=== PATIENT | male | born 1965 | race Caucasian/White ===

== ENCOUNTER 2018-03-09 14:44 | Inpatient (IN) | payer OTHER ==
[~2018-03-09] VITALS: Ht 182.9 cm; Wt 100.6 kg
[~2018-03-09 14:44] MED LIST: LOSA50TA72 PO
[2018-03-09] MEDS ORDERED: GEMF600T91 (14:49)
[2018-03-09] MEDS ORDERED: NS(*) 0.9% 1000 ML BAG 1,000 ML IV ONE ×2 (15:20→17:50)
[2018-03-09] MEDS ORDERED: ONDANSETRON 4 MG/2 ML VIAL IVP ONE (15:20)
[2018-03-09] MEDS ORDERED: DICYCLOMINE HCL 10 MG CAP PO ONE (15:20)
[2018-03-09] MEDS ORDERED: IOPAMIDOL 76% 100 ML INFUS BTL 100 ML ONE (15:29)
--- NOTE | 2018-03-09 15:34 | ER Report ---
History and Physical Time Seen By MD: 15:00 Hx. of Stated Complaint: PT REPORTS VOMITING, DIARRHEA AND ABD PAIN ON AND OFF SINCE MONDAY HPI/ROS CHIEF COMPLAINT: diarrhea/vomiting/abdominal pain HISTORY OF PRESENT ILLNESS: Pt here for evaluation of n/v and diarrhea. Pt symptoms Monday. Monday ate at [employer] and started with diarrhea soon after. PT thought he had food poisioning. On Monday started with vomiting with the diarrhea. thought it was getting better until today when symptoms restarted. Pt has diffuse abdominal cramping. no traveling out side the country. no recent abx. no fevers or chills. tired zantac and immodium without relief. no sick contacts. PT did state that he stepped on a jeffery nail 10 days ago thru his shoe. The foot is better per pt but he needs a tetnus shot. REVIEW OF SYSTEMS: Constitutional: No fever, no chills. Eyes: No discharge. ENT: No sore throat. Cardiovascular: No chest pain, no palpitations. Respiratory: No cough, no shortness of breath. Gastrointestinal: + abdominal pain, + vomiting, + diarrhea Genitourinary: No hematuria. Musculoskeletal: No back pain. Skin: No rashes. Neurological: No headache. Allergies: Coded Allergies: No Known Drug Allergies (Unverified , 03/09/18) Home Meds Reported Medications Gemfibrozil (GEMFIBROZIL) 600 Mg Tablet, BID 03/09/18 Losartan Potassium (LOSARTAN POTASSIUM) 50 Mg Tablet, 50 MG PO QDAY 12/25/16 Past Medical/Surgical History Pmhx: htn, hyperlipid Pshx: hernia repair a child Hx Smoking: No (chews) Hx Substance Use Disorder: No Hx Alcohol Use: Yes Constitutional Vital Sign - Last 24 Hours 03/09/18 03/09/18 03/09/18 03/09/18 14:45 14:50 15:31 16:06 Temp 97.8 Pulse 68 68 Resp 18 B/P (MAP) 142/98 142/98 (113) 132/93 (106) Pulse Ox 96 90 O2 Delivery Room Air 03/09/18 16:21 Pulse 70 Pulse Ox 92 Intake and Output 03/09/18 03/09/18 03/10/18 15:00 23:00 07:00 Intake Total 1000 ml Balance 1000 ml Physical Exam General Appearance: The patient is alert, has no immediate need for airway protection and no signs of toxicity. Eyes: Pupils equal and round no pallor or injection, EOMI ENT: no pharyngeal erythema or exudates, Mucous membranes are moist, Respiratory: There are no retractions, lungs are clear to auscultation. Cardiovascular: Regular rate and rhythm. pulses are equal and symmetrical Gastrointestinal: Abdomen is soft with diffuse tenderness, no masses, bowel sounds decreased no guarding, no rigidity or rebound Neurological: Cranial nerves II-XII grossly intact, no sensory or motor loss Skin: Warm and dry, no rashes. Musculoskeletal: Neck is supple non tender, no vertebral tenderness Extremities are nontender, nonswollen and have full range of motion. DIFFERENTIAL DIAGNOSIS: After history and physical exam differential diagnosis was considered for colitis, diverticulitis, infectious diarrhea, psbo, dehydation, electrolyte abnl Medical Decision Making Data Points Result Diagram: 03/09/18 1604 03/09/18 1604 Laboratory Hematology Test 03/09/18 16:04 Red Blood Count 5.38 M/uL (4.00-5.60) Mean Corpuscular Volume 85.7 fL (80.0-96.0) Mean Corpuscular Hemoglobin 31.2 pg (26.0-33.0) Mean Corpuscular Hemoglobin Concent 36.4 g/dL (32.0-36.0) Red Cell Distribution Width 13.5 % (11.5-14.5) Mean Platelet Volume 8.6 fL (7.2-11.1) Neutrophils (%) (Auto) 78.3 % (39.4-72.5) Lymphocytes (%) (Auto) 13.1 % (17.6-49.6) Monocytes (%) (Auto) 4.9 % (4.1-12.4) Eosinophils (%) (Auto) 3.4 % (0.4-6.7) Basophils (%) (Auto) 0.3 % (0.3-1.4) Nucleated RBC Relative Count (auto) 0.1 /100WBC Neutrophils # (Auto) 8.3 K/uL (2.0-7.4) Lymphocytes # (Auto) 1.4 K/uL (1.3-3.6) Monocytes # (Auto) 0.5 K/uL (0.3-1.0) Eosinophils # (Auto) 0.4 K/uL (0.0-0.5) Basophils # (Auto) 0.0 K/uL (0.0-0.1) Nucleated RBC Absolute Count (auto) 0.01 K/uL Peripheral Blood Smear Yes Y/N Sodium Level 144 mmol/L (137-145) Potassium Level 3.0 mmol/L (3.5-5.0) Chloride Level 105 mmol/L (98-107) Carbon Dioxide Level 22 mmol/L (22-30) Blood Urea Nitrogen 19 mg/dl (9-21) Creatinine 1.10 mg/dl (0.66-1.25) Glomerular Filtration Rate Calc > 60.0 Random Glucose 124 mg/dl (75-110) Calcium Level 9.1 mg/dl (8.4-10.2) Magnesium Level 1.9 mg/dl (1.7-2.2) Total Bilirubin 1.0 mg/dl (0.2-1.3) Aspartate Amino Transf (AST/SGOT) 36 U/L (0-35) Alanine Aminotransferase (ALT/SGPT) 54 U/L (0-56) Alkaline Phosphatase 54 U/L (0-126) Total Protein 7.0 g/dl (6.3-8.2) Albumin 4.2 g/dl (3.5-5.0) Lipase 4635 U/L (23-300) Chemistry Test 03/09/18 16:04 White Blood Count 10.5 k/uL (4.5-11.0) Red Blood Count 5.38 M/uL (4.00-5.60) Hemoglobin 16.8 g/dL (14.0-18.0) Hematocrit 46.1 % (42.0-52.0) Mean Corpuscular Volume 85.7 fL (80.0-96.0) Mean Corpuscular Hemoglobin 31.2 pg (26.0-33.0) Mean Corpuscular Hemoglobin Concent 36.4 g/dL (32.0-36.0) Red Cell Distribution Width 13.5 % (11.5-14.5) Platelet Count 237 K/uL (150-450) Mean Platelet Volume 8.6 fL (7.2-11.1) Neutrophils (%) (Auto) 78.3 % (39.4-72.5) Lymphocytes (%) (Auto) 13.1 % (17.6-49.6) Monocytes (%) (Auto) 4.9 % (4.1-12.4) Eosinophils (%) (Auto) 3.4 % (0.4-6.7) Basophils (%) (Auto) 0.3 % (0.3-1.4) Nucleated RBC Relative Count (auto) 0.1 /100WBC Neutrophils # (Auto) 8.3 K/uL (2.0-7.4) Lymphocytes # (Auto) 1.4 K/uL (1.3-3.6) Monocytes # (Auto) 0.5 K/uL (0.3-1.0) Eosinophils # (Auto) 0.4 K/uL (0.0-0.5) Basophils # (Auto) 0.0 K/uL (0.0-0.1) Nucleated RBC Absolute Count (auto) 0.01 K/uL Peripheral Blood Smear Yes Y/N Glomerular Filtration Rate Calc > 60.0 Calcium Level 9.1 mg/dl (8.4-10.2) Magnesium Level 1.9 mg/dl (1.7-2.2) Total Bilirubin 1.0 mg/dl (0.2-1.3) Aspartate Amino Transf (AST/SGOT) 36 U/L (0-35) Alanine Aminotransferase (ALT/SGPT) 54 U/L (0-56) Alkaline Phosphatase 54 U/L (0-126) Total Protein 7.0 g/dl (6.3-8.2) Albumin 4.2 g/dl (3.5-5.0) Lipase 4635 U/L (23-300) EKG/Imaging Imaging diverticulosis, very small amount free fluid ED Course/Re-evaluation Clinical Indication for ER IV: Hydration, IV Access ED Course Will check labs and give fluids 03/09/2018 5:53:21 pm Pts potassium is low and being replaced. Pts CT is stable. Labs show pancreatitis. Will speak with Hospitalist, Dr. Traylor. 03/09/2018 5:58:[address] Traylor to admit. Decision to Disposition Date: Mar 09, 2018 Decision to Disposition Time: 17:58 Depart Departure Latest Vital Signs Vital Signs Date Time Temp Pulse Resp B/P (MAP) Pulse Ox O2 Delivery O2 Flow Rate FiO2 03/09/18 16:21 70 92 03/09/18 15:31 132/93 (106) 03/09/18 14:45 97.8 18 Room Air Impression: Primary Impression: Gastroenteritis Additional Impressions: Hypokalemia Pancreatitis, acute Condition: Improved Disposition: Admitted from ER Problem Qualifiers Additional Impressions: Pancreatitis, acute Pancreatitis type: unspecified pancreatitis type Acute pancreatitis complication: unspecified Qualified Codes: K85.90 - Acute pancreatitis without necrosis or infection, unspecified CAITLYN PUCKETT DO Mar 09, 2018 15:34
[2018-03-09 16:14] LABS: PLATELET COUNT, AUTOMATED 237 K/uL (150-450)
[2018-03-09] MEDS: KCL (*) 20 MEQ/100 ML PREMIX 100 ML IV SCH ×2 (17:06→18:59)
--- NOTE | 2018-03-09 17:15 | RADIOLOGY IMAGING REPORT ---
FACILITY: [facility] - [place] PATIENT NAME: New Simpson : 1965 MR: [id number] V: [id number] EXAM DATE: ORDERING PHYSICIAN: CAITLYN PUCKETT TECHNOLOGIST: Location: [facility] Patient: New Simpson : 1965 Visit/Account:[id number] Date of Sevice: 03/09/2018 CT abdomen and pelvis with IV contrast Indication: Abdominal pain and diarrhea. Comparison: None available. . Technique: Axial CT images were obtained through the abdomen and pelvis during injection of nonioni c iodinated intravenous contrast. Reformatted coronal and sagittal images were also obtained. One of the following dose optimization techniques was utilized in the performance of this exam: Autom ated exposure control; adjustment of the mA and/or kV according to the patient's size; or use of an i terative reconstruction technique. Specific details can be referenced in the facility's radiology C T exam operational policy. Contrast: 75 ml of Isovue-370 IV contrast. Findings: Lower lung berry: There are some mild bibasilar atelectasis. The anterior left lower lobe does show a 4 mm nodule. As this is less than 6 mm, no further dictation. Lung bases otherwise clear. Liver: Liver does appear to be mildly diffusely dense. The inferior right lobe liver does show a lesi on which may represent a area of focal fat or fatty sparing, as vessels appear to run normally throug h this area.. Biliary: Gallbladder appears unremarkable as well as the intra and extra hepatic biliary system. Pancreas: Normal appearance. Spleen: Normal appearance. Adrenal glands: Unremarkable. Kidneys / retroperitoneum: No evidence of nephrolithiasis or hydronephrosis. No focal abnormality. Bowel / peritoneum / mesenteries: The descending and sigmoid colon do show couple diverticula without pericolonic inflammation. The colon shows no other focal abnormality. The appendix is normal. Small bowel shows no focal normality or obstruction. The stomach is unremarkable. No free air, fluid collections or areas of inflammation. Very small amount of free fluid seen in the pelvis. There is a small supraumbilical ventral hernia containing fat. Small left renal hernia presen t containing fat. Lymph node assessment: No pathologic adenopathy identified. Pelvic structures: Appear unremarkable. Vessels: No significant atherosclerotic calcifications seen throughout a nonaneurysmal abdominal aort a and branches. Musculoskeletal / Body wall: No acute or aggressive osseous abnormality. Bone island in the left femo ral neck. IMPRESSION: 1. No acute intra-abdominal abnormality 2. Diverticulosis without radiographic indication of diverticulitis. 3. Very small amount of free fluid in pelvis, nonspecific. 4. Other chronic nonemergent findings as above. Report Dictated By: Donovan Ta at 03/09/2018 5:02 PM Report E-Signed By: Donovan Ta at 03/09/2018 5:11 PM [id number]
[2018-03-09] MEDS ORDERED: DIPHTH/TETANUS/ACEL. PERTUSSIS IM ONLY ONE (17:35)
[2018-03-09 19:53] VITALS: BP 148/93
[2018-03-09] MEDS ORDERED: NS(*) 0.9% 250 ML BAG 250 ML ONE (20:13)
[2018-03-09] MEDS ORDERED: NS(*) 0.9% 1000 ML BAG 1,000 ML IV PRN (20:19)
[2018-03-09] MEDS ORDERED: PROMETHAZINE 25 MG/ML 1 ML AMP IVP PRN (20:20)
[2018-03-09] MEDS ORDERED: HYDROmorphone HCL 2 MG/ML SDV IVP PRN (20:20)
--- NOTE | 2018-03-09 20:39 | History & Physical ---
History of Present Illness Chief Complaint Nausea, vomiting, diarrhea, abdominal pain History of Present Illness 52yo male with PMHx significant for HTN, hypercholesterolemia. He reports onset of nausea, diarrhea, abdominal pain approximately 4 days ago. The symptoms seemed to be worst following meals. The symptoms would wax and wane through the day. The abdominal pain is described as fairly diffuse. He would also have crampy pain when the diarrhea would occur. He has had episodic feverish and chilled sensations with some cold sweats when having cramps. He denies any exposure to suspected/known tainted food or fluids. He had two beers last evening - no other alcohol use recently. He was evaluated in the ER and found to have an elevated lipase at 4635. His CT scan of abdomen and pelvis is unremarkable. He was recommended for admission. History Problems: (1) HTN (hypertension) Status: Chronic (2) Hypercholesteremia Status: Chronic (3) History of inguinal hernia repair Status: Resolved Home Meds Reported Medications Gemfibrozil (GEMFIBROZIL) 600 Mg Tablet, BID 03/09/18 Losartan Potassium (LOSARTAN POTASSIUM) 50 Mg Tablet, 50 MG PO QDAY 12/25/16 Allergies: Coded Allergies: No Known Drug Allergies (Unverified , 03/09/18) Hx Smoking: No (chews) Hx Alcohol Use: Yes Alcohol Use: Occassional Alcohol Used: Beer Review of Systems Constitutional: Fever, Chills Neurological: No Syncope, No Confusion, No Weakness Eyes: No Vision Change, No Loss of Vision ENT: No Hearing Loss Cardiovascular: No Chest Pain, No Palpitations Respiratory: No Shortness of Breath, No Cough, No Wheezing Gastrointestinal: Nausea, Vomiting, Diarrhea, No Hematochezia, No Melena, Abdominal Pain Genitourinary: No Dysuria, No Hematuria Musculoskeletal: No Pain, No Sprain, No Strain, No Impaired Mobility Psychiatric: No Depression, No Anxiety Exam Vital Signs Vital Signs Date Time Temp Pulse Resp B/P (MAP) Pulse Ox O2 Delivery O2 Flow Rate FiO2 03/09/18 19:53 98.2 63 18 148/93 (111) 94 Room Air General Appearance: Alert, Awake Neuro: No Gross deficits Eyes: PERRLA ENT: Oropharynx Clear Neck: No Masses Cardiovascular: Regular Rate and Rhythm Respiratory: Clear to Auscultation Chest: No Tenderness GI: Other (soft/BS present/minimal tenderness reported/no guarding or rebound) : No CVA Tenderness Lymph: No Adenopathy Extremities: Warm, Perfused Integumentary: Skin Intact without Lesion / Mass Psych: Alert & Oriented X3 Medical Decision Making Data Points Result Diagram: 03/09/18 1604 03/09/18 1604 Item Value Date Time Lipase 4635 U/L H 03/09/18 1604 Albumin 4.2 g/dl 03/09/18 1604 Total Protein 7.0 g/dl 03/09/18 1604 Alkaline Phosphatase 54 U/L 03/09/18 1604 Alanine Aminotransferase (ALT/SGPT) 54 U/L 03/09/18 1604 Aspartate Amino Transf (AST/SGOT) 36 U/L H 03/09/18 1604 Total Bilirubin 1.0 mg/dl 03/09/18 1604 Magnesium Level 1.9 mg/dl 03/09/18 160 Calcium Level 9.1 mg/dl 03/09/18 160 EKG / Imaging Imaging PATIENT NAME: New Simpson : 1965 MR: [id number] V: [id number] EXAM DATE: [id number] ORDERING PHYSICIAN: CAITLYN PUCKETT TECHNOLOGIST: Location: [facility] [place] Patient: New Simpson : 1965 Visit/Account:[id number] Date of Sevice: 03/09/2018 CT abdomen and pelvis with IV contrast Indication: Abdominal pain and diarrhea. Comparison: None available. . Technique: Axial CT images were obtained through the abdomen and pelvis during injection of nonionic iodinated intravenous contrast. Reformatted coronal and sagittal images were also obtained. One of the following dose optimization techniques was utilized in the performance of this exam: Automated exposure control; adjustment of the mA and/ or kV according to the patient's size; or use of an iterative reconstruction technique. Specific details can be referenced in the facility's radiology CT exam operational policy. Contrast: 75 ml of Isovue-370 IV contrast. Findings: Lower lung berry: There are some mild bibasilar atelectasis. The anterior left lower lobe does show a 4 mm nodule. As this is less than 6 mm, no further dictation. Lung bases otherwise clear. Liver: Liver does appear to be mildly diffusely dense. The inferior right lobe liver does show a lesion which may represent a area of focal fat or fatty sparing, as vessels appear to run normally through this area.. Biliary: Gallbladder appears unremarkable as well as the intra and extra hepatic biliary system. Pancreas: Normal appearance. Spleen: Normal appearance. Adrenal glands: Unremarkable. Kidneys / retroperitoneum: No evidence of nephrolithiasis or hydronephrosis. No focal abnormality. Bowel / peritoneum / mesenteries: The descending and sigmoid colon do show couple diverticula without pericolonic inflammation. The colon shows no other focal abnormality. The appendix is normal. Small bowel shows no focal normality or obstruction. The stomach is unremarkable. No free air, fluid collections or areas of inflammation. Very small amount of free fluid seen in the pelvis. There is a small supraumbilical ventral hernia containing fat. Small left renal hernia present containing fat. Lymph node assessment: No pathologic adenopathy identified. Pelvic structures: Appear unremarkable. Vessels: No significant atherosclerotic calcifications seen throughout a nonaneurysmal abdominal aorta and branches. Musculoskeletal / Body wall: No acute or aggressive osseous abnormality. Bone island in the left femoral neck. IMPRESSION: 1. No acute intra-abdominal abnormality 2. Diverticulosis without radiographic indication of diverticulitis. 3. Very small amount of free fluid in pelvis, nonspecific. 4. Other chronic nonemergent findings as above. Report Dictated By: Donovan Ta at 03/09/2018 5:02 PM Report E-Signed By: Donovan Ta at 03/09/2018 5:11 PM [id number] Assessment and Plan Problems: (1) Pancreatitis, acute Status: Acute Assessment & Plan: It sounds as if he may have had some acute gastroenteritis precede the development of the acute pancreatitis. He does not drink alcohol at a significant level, but it could potentially be the cause. No evidence of cholelithiasis on CT. Place on IV fluids, pain meds, and antiemetics. Watch labs closely. Will also check lipid panel. Hold his current medications as well. (2) Hypercholesteremia Status: Chronic Assessment & Plan: He has been managed with gemfibrozil. Will hold this for now. (3) HTN (hypertension) Status: Chronic Assessment & Plan: Will hold his losartan for now. Monitor BPs. (4) Hypokalemia Status: Acute Assessment & Plan: Replace with IV supplements. Watch labs. Venous Thromboembolism Antithrombotics Is Pt On Any Antithrombotics?: No (will use AMBROSIO hose and mobilization) Exam Sepsis Risk: No Definite Risk Problem Qualifiers (1) Pancreatitis, acute: Pancreatitis type: unspecified pancreatitis type Acute pancreatitis complication: unspecified Qualified Codes: K85.90 - Acute pancreatitis without necrosis or infection, unspecified BRE MARQUEZ MD Mar 09, 2018 20:39
[2018-03-09] MEDS ORDERED: LOSA-51 PO (22:55)
[2018-03-09] MEDS ORDERED: CINN500C12 PO (22:59)
[2018-03-09] MEDS ORDERED: OMEG100027 PO (22:59)
[2018-03-09] MEDS ORDERED: CHOL200074 PO (22:59)
[2018-03-10 05:38] VITALS: BP 142/82
[2018-03-10 06:44] LABS: PLATELET COUNT, AUTOMATED 210 K/uL (150-450)
[2018-03-10 07:00] VITALS: BP 142/92
[2018-03-10 07:17] VITALS: BP 140/90
[2018-03-10] MEDS ORDERED: LOSARTAN POTASSIUM 50 MG TAB PO SCH (10:10)
[2018-03-10] MEDS ORDERED: HYDROCHLOROTHIAZIDE 25 MG TAB PO SCH (10:10)
[2018-03-10 10:45] VITALS: Ht 182.9 cm; Wt 100.6 kg
--- NOTE | 2018-03-10 10:57 | Medical Nutrition Therapy ---
Nutrition Anthropometrics Height (Inches): 72.00 Height (Calculated Centimeters: 182.732469 Weight (Pounds): 221 Weight (Calculated Kilograms): 100.584 Eleazar Nutrition Score: Probably Inadequate Eleazar Nutrition Risk Score: 21 Dietary Referral Nutrition Risk Factors: Nutrition Risk Comment: Physical Findings Physical Appearance: Obese BMI 30-39 Skin Appearance Skin Appearance: Edema Edema Location Modifier: Edema Location: Type of Edema: Degree of Edema: Gastrointestinal Symptoms GI Symtoms: Change in Bowel Pattern Tube Present: Bowel Sounds: Recent Bowel Pattern: Diarrhea Stool Characteristics: Nutritional Diagnosis Nutritional Risk Acuity 2: Pancreatitis Nutritional Risk Acuity 3: Nausea Past Medical History: HTN, hypercholesterolemia Nutritional Acuity: 2-Moderate Nutrition Diagnosis: Decreased Nutrient Needs Nutrition Etiology: Physiological Causes Nutrition Problem/Etiology/Sym: Decreased fat need related to physiological causes as evidenced by acute pancreatitis. Adjusted Energy Requirement Re: 2450 ([id number]) Diet Type: Low Fat Nutrition Intervention: Incr diet as tolerated Drug: Diuretics Drug/Nutrition Recommendations: Check Serum K+ Nutrition Monitoring & Eval RD Patient Assessment Time: [address] Assessment Type: RD Assessment Patient Nutrition Acuity: 2-Moderate Follow Up Date: Mar 15, 2018 Nutritional Comment: 03/10 Pt admitted with N/V/D and abdominal pain and will be treated for acute pancreatitis. PMH of HTN, BMI in obese category. Diet progressed to low fat this morning with no intake yet. Recommend slow progression to regular diet. Notable labs include K 3, total pro 5.4, alb 3.2 and lipase started at 4635 and decreased to 244. Will cont to monitor and encourage intake. -GREGOR CHAVIRA Mar 10, 2018 10:57
--- NOTE | 2018-03-10 13:50 | Hospitalist Depart ---
Discharge Summary Reason for Hosp/Final Diag: (1) Pancreatitis, acute Status: Acute Hospital Course & Plan: It sounds as if he may have had some acute gastroenteritis precede the development of the acute pancreatitis. He does not drink alcohol at a significant level, but it could potentially be the cause. No evidence of cholelithiasis on CT. Triglycerides are normal. He was hydrated and made NPO. Lipase was normal this morning. He tolerated a low fat lunch and wants to go home. (2) Diarrhea Status: Acute Hospital Course & Plan: This has been present with the symptoms. He is still having loose yellow stools. Stool culture is pending. He can try Imodium. If he develops worsening or fevers/chills then he needs to go to the ER. (3) Hypercholesteremia Status: Chronic Hospital Course & Plan: He has been managed with gemfibrozil. (4) HTN (hypertension) Status: Chronic Hospital Course & Plan: Continue Losartan/HCTZ. (5) Hypokalemia Status: Resolved Hospital Course & Plan: Replace with IV supplements. Watch labs. Departure Weight (Pounds): 221 Weight (Ounces): 12.0 Result Diagram: 03/10/18 0606 03/10/18 06 Item Value Date Time White Blood Count 10.5 k/uL 03/09/18 1604 White Blood Count 7.2 k/uL 03/10/18 0606 Neutrophils (%) (Auto) 66.1 % 03/10/18 0606 Neutrophils (%) (Auto) 78.3 % H 03/09/18 1604 Hemoglobin 16.8 g/dL 03/09/18 1604 Hemoglobin 14.5 g/dL 03/10/18 0606 Blood Urea Nitrogen 19 mg/dl 03/09/18 1604 Creatinine 1.10 mg/dl 03/09/18 1604 Blood Urea Nitrogen 16 mg/dl 03/10/18 0606 Creatinine 1.00 mg/dl 03/10/18 0606 Carbon Dioxide Level 20 mmol/L L 03/10/18 0606 Carbon Dioxide Level 22 mmol/L 03/09/18 1604 Potassium Level 3.0 mmol/L L 03/09/18 1604 Potassium Level 3.7 mmol/L 03/10/18 0606 Aspartate Amino Transf (AST/SGOT) 23 U/L 03/10/18 0606 Alanine Aminotransferase (ALT/SGPT) 47 U/L 03/10/18 0606 Alkaline Phosphatase 44 U/L 03/10/18 0606 Total Protein 5.4 g/dl L 03/10/18 06 Total Bilirubin 1.0 mg/dl 03/09/18 160 Total Bilirubin 0.9 mg/dl 03/10/18 0606 Magnesium Level 1.9 mg/dl 03/09/18 1604 Alkaline Phosphatase 54 U/L 03/09/18 1604 Alanine Aminotransferase (ALT/SGPT) 54 U/L 03/09/18 1604 Lipase 4635 U/L H 03/09/18 1604 Clostridium Difficile Toxin A & B Negative 03/09/181932 Clostridium difficile Antigen Negative 03/09/181932 PEC #: [id number] ARLEY: 03/09/18 STATUS: RES REQ # : [id number] RECD: 03/09/[address] [facility] [address]: CAITLYN PUCKETT DO SOURCE: STOOL ENTR: 03/09/18-[address] [facility] [address]: SPDES: ORDERED: CULT STOOL Procedure Result Verified STOOL CULTURE Preliminary 03/10/18 RARE GROWTH NORMAL FECAL COLIFORMS PRESENT. CULTURE REINCUBATED. Imaging Abd/Pelvis CT - 1. No acute intra-abdominal abnormality 2. Diverticulosis without radiographic indication of diverticulitis. 3. Very small amount of free fluid in pelvis, nonspecific. 4. Other chronic nonemergent findings as above. Condition: Improved Discharge: Home Discharge Instructions Home Meds Reported Medications Cholecalciferol (Vitamin D3) (VITAMIN D-3) 2,000 Unit Capsule, 500 UNIT PO BID, CAPSULE 03/09/18 Cinnamon Bark (CINNAMON) 500 Mg Capsule, 500 MG PO BID, CAPSULE 03/09/18 Losartan/Hydrochlorothiazide (LOSARTAN-HCTZ 50-12.5 MG TAB) 1 Each Tablet, 1.5 EACH PO QHS 03/09/18 Gemfibrozil (GEMFIBROZIL) 600 Mg Tablet, BID 03/09/18 Discontinued Reported Medications Wynne-3 Fatty Acids (FISH OIL CONCENTRATE) 1,000 Mg Capsule, 2000 MG PO BID, CAPSULE 03/09/18 Losartan Potassium (LOSARTAN POTASSIUM) 50 Mg Tablet, 50 MG PO QDAY 12/25/16 Diet: Low Fat Activity: As Tolerated Special Instructions: Go to the ER for worsening abdominal pain, fevers, chills, worsening diarrhea Copies to: [employer] Venous Thromboembolism Antithrombotics Is Pt On Any Antithrombotics?: No (will use AMBROSIO hose and mobilization) Problem Qualifiers (1) Pancreatitis, acute: Pancreatitis type: unspecified pancreatitis type Acute pancreatitis complication: unspecified Qualified Codes: K85.90 - Acute pancreatitis without necrosis or infection, unspecified LENA MONTEZ MD Mar 10, 2018 13:50
== END 2018-03-10 14:15 | disposition home or self-care (01) | DRG 440 ==
LOC: ER 15:07 → MED 18:23
PROVIDERS: ADMIT Internal Medicine; ATTEND Internal Medicine
DX: K85.20 Alcohol induced acute pancreatitis without necrosis or infection (principal); K52.9 Noninfective gastroenteritis and colitis, unspecified; I10 Essential (primary) hypertension; E87.6 Hypokalemia; E78.5 Hyperlipidemia, unspecified; F17.220 Nicotine dependence, chewing tobacco, uncomplicated; Z23 Encounter for immunization
CPT/HCPCS: 36415; 74177; 82040; 82247; 82310; 82374; 82435; 82565; 82947; 83690; 83735; 84075; 84132; 84155; 84295; 84450; 84460; 84478; 84520; 85025; 87045; 87177; 87324; 87449; 90471; 90715; 96361; 96365; 99284; J3480; J7030; Q9967